=== PATIENT | female | born 1990 | race Caucasian/White ===

== ENCOUNTER 2016-11-05 19:45 | Emergency (ER) | payer OTHER ==
[~2016-11-05] VITALS: Ht 160 cm; Wt 49.9 kg
[2016-11-05 19:50] VITALS: BP_SYST 113
== END 2016-11-05 20:20 | disposition left against medical advice (07) ==
LOC: SED 19:45
DX: R05 Cough (principal); R09.89 Other specified symptoms and signs involving the circulatory and respiratory systems; Z53.21 Procedure and treatment not carried out due to patient leaving prior to being seen by health care provider